=== PATIENT | female | born 1975 | race Caucasian/White ===

== ENCOUNTER 2022-02-08 08:10 | Day surgery (SDC) | payer OTHER ==
[2022-02-08] VITALS (13 sets, daily range): BP systolic 105–130; BP diastolic 48–84
[~2022-02-08] VITALS: Ht 170.2 cm; Wt 87.4 kg
[~2022-02-08 08:10] MED LIST: BUPIVAcaine/PF 2.5 mg/ml (0.25%) 30ml vial ONE; INDOCYANINE GREEN 25 MG/10 ML VIAL IV ONE; LIDOcaine 1% 30ml preserv. free vial ONE; NO HOME MEDS; ceFAZolin inj. 2,000 MG in dextrose 5%-water 100 ML IV ONE; famotidine 20mg tablet PO ONE; ringers solution, lacted 1,000 ML IV SCH
[2022-02-08] MEDS ORDERED: LIDOcaine 1%/PF 5ML 10 MG/ML VIAL ONE (09:36)
[2022-02-08] MEDS ORDERED: BUPIVAcaine/PF 2.5mg/ml (0.25%) 10ml vial ONE (09:36)
[2022-02-08 09:49] LABS: BASOPHILS % (AUTO) 0.7 % (0-1); EOSINOPHILS # (AUTO) 0.1 X10'3 (0-0.9); EOSINOPHILS % (AUTO) 1.4 % (0-6); HEMATOCRIT 38.6 % (35.0-45.0); HEMOGLOBIN 13.4 g/dl (12.0-16.0); LYMPHOCYTES # (AUTO) 1.8 X10'3 (1.1-4.8); LYMPHOCYTES % (AUTO) 30.2 % (21-51); MEAN CORPUSCULAR HEMOGLOBIN 33.6 PG (27.0-31.0); MEAN CORPUSCULAR HGB CONC 34.7 g/dL (33.0-36.5); MEAN CORPUSCULAR VOLUME 96.8 FL (78-98); MEAN PLATELET VOLUME 8.9 FL (7.4-10.4); MONOCYTES # (AUTO) 0.4 X10'3 (0-0.9); NEUTROPHILS # (AUTO) 3.6 X10'3 (1.8-7.7); NEUTROPHILS % (AUTO) 61.7 % (42-75); PLATELET COUNT 234 X10'3 (140-440); RED BLOOD COUNT 3.99 X10'6 (4.20-5.60); RED CELL DISTRIBUTION WIDTH 12.7 % (11.5-14.5); WHITE BLOOD COUNT 5.8 X10'3 (4.5-11.0)
[2022-02-08] MEDS ORDERED: sevoflurane 250ml liquid IH ONE (09:58)
[2022-02-08] MEDS ORDERED: dexamethasone sod phosphate 10mg/ml inj ONE (09:58)
[2022-02-08] MEDS ORDERED: fentaNYL/PF 50MCG/1 ML 2ML syringe ONE (10:00)
[2022-02-08] MEDS ORDERED: LIDOcaine 2% (20mg/ml) 5ml vial ONE (10:01)
[2022-02-08] MEDS ORDERED: MIDAZolam 1 MG/ML 5ML VIAL ONE (10:01)
[2022-02-08] MEDS ORDERED: ondansetron/PF 4mg/2ml inj ONE (10:01)
[2022-02-08] MEDS ORDERED: propofol inj 20 ML IV ONE (10:01)
[2022-02-08] MEDS ORDERED: rocuronium 10mg/ml inj IV ONE (10:10)
[2022-02-08] MEDS ORDERED: BUPIVAcaine/PF 2.5 mg/ml (0.25%) 30ml vial ONE (10:13)
[2022-02-08] MEDS ORDERED: LIDOcaine 1% 30ml preserv. free vial ONE (10:13)
[2022-02-08] MEDS ORDERED: glycopyrrolate 0.2mg/ml inj ONE (10:14)
[2022-02-08] MEDS ORDERED: neostigmine methylsulfate 1 MG/ML 10ml vial ONE (10:15)
[2022-02-08 10:38] LABS: ALANINE AMINOTRANSFERASE 26 U/L (12-78); ALBUMIN 3.8 G/DL (3.4-5.0); ALBUMIN/GLOBULIN RATIO 1.2 (1.1-1.5); ALKALINE PHOSPHATASE 79 IU/L (46-116); ANION GAP 10 (8-16); ASPARTATE AMINO TRANSFERASE 17 U/L (10-37); BILIRUBIN,TOTAL 0.8 MG/DL (0.1-1.0); BLOOD UREA NITROGEN 11 MG/DL (7-18); BUN/CREATININE RATIO 14.1 (6.6-38.0); CALCIUM 8.2 MG/DL (8.5-10.1); CHLORIDE 108 MMOL/L (99-107); CREATININE 0.78 MG/DL (0.40-0.90); GLUCOSE 86 MG/DL (70-104); POTASSIUM 4.1 MMOL/L (3.5-5.1); SODIUM 139 MMOL/L (135-145); TOTAL CARBON DIOXIDE 21.2 MMOL/L (24-32); TOTAL PROTEIN 6.9 G/DL (6.4-8.2); eGFR 80 ML/MIN
[2022-02-08] MEDS ORDERED: HYDROmorphone/PF 0.2 MG/ML SYRINGE IV PRN ×2 (10:45)
[2022-02-08] MEDS ORDERED: morphine 4 MG/ML inj SYRINge IV PRN (10:45)
[2022-02-08] MEDS ORDERED: morphine 2 MG/ML inj. syringe IV PRN (10:45)
[2022-02-08] MEDS ORDERED: labetalol 20mg/4ml (5mg/ml) syringe IV PRN (10:45)
[2022-02-08] MEDS ORDERED: ringers solution, lacted 1,000 ML IV SCH (10:45)
[2022-02-08] MEDS ORDERED: ondansetron/PF 4mg/2ml inj IV PRN (10:45)
[2022-02-08] MEDS ORDERED: hydrALAZINE 20mg/ml inj. IV PRN (10:45)
[2022-02-08 11:05] LABS: HCG SERUM QL NEGATIVE
--- NOTE | 2022-02-08 11:10 | NUR ---
Received from OR via [facility] , accompanied by Anesthesiologist and report given by ABDULKADIR Anesthesiologist. PATIENT WAKING UP, DENIES PAIN, V/S WNL, SCD ON , PIV 20G R FOREARM, DERMABONDED LAPS SITES CLOSED CDI TO ABDOMEN. Addendum: 02/08/22 at 1135 by Dylan Kwon RN Amended: Links added.
[2022-02-08] MEDS ORDERED: HYDROcodone/acetaminophen 5mg/325mg tablet PO PRN (11:35)
--- NOTE | 2022-02-08 12:55 | NUR ---
ALL DISCHARGE CRITERIA HAS BEEN MET. VSS, PAIN AT A TOLERABLE LEVEL, VOIDING AND ABLE TO SAFELY AMBULATE AND TRANSFER SELF. IV TAKEN OUT WITHOUT ANY COMPLICATIONS. ALL DISCHARGE INSTRUCTIONS COVERED WITH PATIENT AND ALL QUESTIONS ANSWERED. PATIENT TAKEN OUT VIA WHEELCHAIR WITH ALL BELONGINGS TO PERSONAL VEHICLE WHERE FRIEND DROVE PATIENT HOME. Addendum: 02/08/22 at 1314 by Dylan Kwon RN Amended: Links added.
== END 2022-02-08 12:55 | disposition home or self-care (01) ==
LOC: PAS 08:10
PROVIDERS: ATTEND Surgery
DX: K80.10 Calculus of gallbladder with chronic cholecystitis without obstruction (principal); F12.90 Cannabis use, unspecified, uncomplicated; E78.5 Hyperlipidemia, unspecified; Z20.822 Contact with and (suspected) exposure to COVID-19; Z79.899 Other long term (current) drug therapy; Z98.890 Other specified postprocedural states; E78.00 Pure hypercholesterolemia, unspecified; F32.9 Major depressive disorder, single episode, unspecified
CPT/HCPCS: 36415; 47563; 80053; 82948; 84703; 85025; 87811; J0690; J2250; J2270; J2405; J2704; J2710; J3010; J3490; J7030; J7060; J7120; S2900; Z7506; Z7508; Z7512; A4215; A4618; A7000; J1100